=== PATIENT | male | born 1975 | race Caucasian/White ===

== ENCOUNTER 2017-02-18 15:52 | Emergency (ER) | payer MEDICARE | END 2017-02-18 19:01 | disposition home or self-care (01) | LOC: D.ER 15:52 | DX: M25.552 Pain in left hip (principal); M54.9 Dorsalgia, unspecified ==

== ENCOUNTER 2018-07-20 09:41 | Emergency (ER) | payer MEDICARE ==
[~2018-07-20] VITALS: Ht 175.3 cm; Wt 75.0 kg
[2018-07-20 09:45] VITALS: Ht 175.3 cm; Wt 75.0 kg
[2018-07-20] MEDS ORDERED: TORADOL10 MG PO (12:35)
[2018-07-20] MEDS ORDERED: NEURONTIN 300300 MG PO (12:35)
[2018-07-20 13:00] VITALS: BP 125/74
== END 2018-07-20 13:01 | disposition home or self-care (01) ==
LOC: D.ER 09:41
DX: M54.16 Radiculopathy, lumbar region (principal); M87.88 Other osteonecrosis, other site

== ENCOUNTER → 2018-09-30 16:08 | Outpatient (CLI) | payer MEDICARE ==
[2018-07-20 09:45] VITALS: BMI 24.4
[~2018-09-30 16:08] MED LIST: NEURONTIN 300300 MG PO; TORADOL10 MG PO
== END | disposition home or self-care (01) ==
LOC: D.LABREF 16:08
PROVIDERS: ATTEND Orthopaedic Surgery
DX: M16.12 Unilateral primary osteoarthritis, left hip (principal)

== ENCOUNTER 2018-10-02 17:29 | Inpatient (IN) | payer MEDICARE ==
[~2018-10-02] VITALS: Ht 175.3 cm; Wt 68.2 kg
[2018-10-08 11:48] LABS: APPEARANCE CLEAR (CLEAR); BILIRUBIN NEGATIVE (NEGATIVE); COLOR YELLOW (YELLOW); GLUCOSE NEGATIVE (NEGATIVE); KETONE NEGATIVE (NEGATIVE); NITRITE NEGATIVE (NEGATIVE); PROTEIN NEGATIVE (NEGATIVE); SPECIFIC GRAVITY 1.015 (1.005-1.020); UROBILINOGEN NORMAL (NORMAL)
[2018-10-08 12:01] LABS: INR 0.87 (0.85-1.17); PROTIME 11.4 SECONDS (11.6-15.0)
[2018-10-08 12:02] LABS: APTT 30.9 SECONDS (22.8-39.4)
[2018-10-08 12:04] LABS: CALC OSMOLALITY 278 mosm/kg (275-300); CALCIUM 9.5 mg/dL (8.5-10.1); CARBON DIOXIDE 30.5 mmol/L (21.0-32.0); CHLORIDE - SERUM 104 mmol/L (98-107); GLUCOSE 95 mg/dL (74-106); POTASSIUM - SERUM 4.4 mmol/L (3.5-5.1); SODIUM 141 mmol/L (136-145); UREA NITROGEN 8 mg/dL (7-18); eGFR NON AFRICAN AMERICAN 87 mL/min (90-120)
[2018-10-08 12:22] LABS: BASOPHILS 0.1 % (0-2); EOSINOPHILS 3.2 % (0-7); HEMATOCRIT 46.9 % (42.0-54.0); HEMOGLOBIN 16.2 g/dL (13.5-17.5); IMMATURE GRANULOCYTES 0.2 % (0-5); LYMPHOCYTES 21.7 % (15-50); MCH 33.4 pg (26.0-34.0); MCHC 34.5 g/dL (31.0-37.0); MCV 96.7 fL (80.0-100.0); MEAN PLATELET VOLUME 9.7 fL (7.4-10.4); MONOCYTES 8.7 % (2-11); NEUTROPHILS 66.1 % (40-80); PLATELET COUNT 341 10x3/uL (130-400); RBC 4.85 10x6/uL (4.20-6.10); RDW 15.1 % (11.5-14.5); WBC 9.9 10x3/uL (4.8-10.8)
[2018-10-15 07:47] VITALS: BP 130/77; BMI 23.6
--- NOTE | 2018-10-15 08:07 | NUR ---
DR ALCANTARA NOTIFIED AND REVIEWED PT.'S BEHAVIOR AND ASSESSMENT RESULTS. PT IS A LOW RISK PER DR ALCANTARA. DR ALCANTARA STATED TO GIVE RESOURCES TO PT AT TIME OF DISCHARGE. NO FURTHER ORDERS AT THIS TIME. RESOURCES REVIEWED WITH PT AND HE VERBALIZED UNDERSTANDING. PT VEHEMENTLY DENIES ANY THOUGHTS OF HARMING SELF AND VOICES REASONS FOR LIVING.
[2018-10-15 14:01] VITALS: BP 128/69
--- NOTE | 2018-10-15 14:49 | NUR ---
From OR today with Prevena dressing attached to Ulta wound vac [id number]. Dressing is on left hip incision.
[2018-10-15 18:23] VITALS: BP 117/72; Ht 175.3 cm; Wt 68.2 kg
--- NOTE | 2018-10-15 19:30 | NUR ---
PT SITTING UP IN BED WITHOUT DISTRESS. ALERT AND ORIENTED. IV RIGHT HAND SL, FLUSHES EASILY. LEFT HIP INCISION WITH PROVENA WOUND VAC DRESSING CDI. USING URINAL TO VOID. PLEXI BOOTS ON BILAT. PT STATES PAIN 6/10 AT THIS TIME, JUST RECIEVED MORPHINE PRIOR TO THIS NURSE RECIEVING PT. DENIES OTHER NEEDS. CL IN REACH, WILL CTM
--- NOTE | 2018-10-15 20:30 | NUR ---
PT REQUESTING PAIN MEDICATION, GAVE NORCO ORDERED. DENIES OTHER NEEDS. CL IN REACH, WILL CTM
[2018-10-15 21:49] VITALS: BP 122/71
[2018-10-16 02:49] VITALS: BP 110/61
--- NOTE | 2018-10-16 03:50 | NUR ---
UPON ENTERING ROOM PT IS SHAKING STATING HE IS COLD, TEMP 98.2 BUT HAS INCREASED TO 99 THROUGH THE NIGHT. EDUCATED PT ON INCENTIVE SPIROMETER AND ENCOURAGED PT TO USE 10X/HR WHILE AWAKE. VERBALIZED UNDERSTANDING. PT REQUESTED AND GIVEN VALIUM AT THIS TIME. CL IN REACH, WILL CTM
[2018-10-16 04:42] LABS: BASOPHILS 0.1 % (0-2); EOSINOPHILS 0.7 % (0-7); HEMATOCRIT 36.8 % (42.0-54.0); HEMOGLOBIN 12.7 g/dL (13.5-17.5); IMMATURE GRANULOCYTES 0.3 % (0-5); MCH 33.5 pg (26.0-34.0); MCHC 34.5 g/dL (31.0-37.0); MCV 97.1 fL (80.0-100.0); MEAN PLATELET VOLUME 9.5 fL (7.4-10.4); MONOCYTES 9.7 % (2-11); NEUTROPHILS 75.2 % (40-80); PLATELET COUNT 275 10x3/uL (130-400); RBC 3.79 10x6/uL (4.20-6.10); RDW 15.2 % (11.5-14.5); WBC 13.2 10x3/uL (4.8-10.8)
[2018-10-16 05:05] LABS: CALC OSMOLALITY 279 mosm/kg (275-300); CALCIUM 8.4 mg/dL (8.5-10.1); CARBON DIOXIDE 28.6 mmol/L (21.0-32.0); CHLORIDE - SERUM 104 mmol/L (98-107); GLUCOSE 102 mg/dL (74-106); SODIUM 141 mmol/L (136-145); UREA NITROGEN 10 mg/dL (7-18); eGFR NON AFRICAN AMERICAN 87 mL/min (90-120)
--- NOTE | 2018-10-16 05:15 | NUR ---
PT FEELING NAUSEAS, GIVEN EMESIS BAG. GAVE ZOFRAN ORDERED. STATES HE DOES NOT WANT THE MORPHINE ANYMORE AND WOULD RATHER HAVE THE NORCO BECAUSE IT LASTS LONGER AND SEEMED TO HELP MORE. NO OTHER NEEDS AT THIS TIME. CL IN REACH, WILL CTM
[2018-10-16 06:29] VITALS: BP 113/77
--- NOTE | 2018-10-16 07:05 | NUR ---
PATIENT IS POST OP DAY 1 FOLLOWING LEFT TOTAL HIP REPLACEMENT. PREVENA VAC INTACT. PAIN CONTROLED WITH NORCO. IV SL PATENT. CL IN REACH
[2018-10-16 10:26] VITALS: BP 117/66
[2018-10-16 12:43] VITALS: BP 104/59
--- NOTE | 2018-10-16 12:49 | MORECARE ---
CASE MANAGEMENT DISCHARGE SUMMARY PATIENT: BENI LEE UNIT: [id number] ADM DATE: 10/15/18 AGE: 43 : 75 SEX: M ROOM/BED: D.2208 AUTHOR: KEN WILLIAMSON PHYSICIAN: REFERRING PHYSICIAN: JULIO CÉSAR OLSEN MD DATE OF SERVICE: 10/16/18 Discharge Plan Patient Name: BENI LEE [facility] [place] : 1975 Planned Disposition: Home or Self Care Anticipated Discharge Date: Discharge Date: Expected LOS: Initial Reviewer: [email or web address] Initial Review Date: 10/15/2018 Generated: 10/16/18 1:49 pm DCPIA - Discharge Planning Initial Assessment Updated by [email or web address]: Toña Larsen on 10/16/18 12:47 pm * Is the patient Alert and Oriented? Yes * How many steps to enter\exit or inside your home? * [facility] * [facility]acy [facility] [place] * Preadmission Environment Home with Family * ADLs Independent * Equipment Bedside Commode Walker Wheelchair * List name and contact numbers for known caregivers / representatives who currently or will assist patient after discharge: JACKIE BRUMFIELD) [phone] * Verbal permission to speak to the caregivers and representatives has been obtained from the patient. N/A * Community resources currently utilized None * Additional services required to return to the preadmission environment? Yes * Can the patient safely return to the preadmission environment? Yes * Has this patient been hospitalized within the prior 30 days at any hospital? No Patient Name: BENI LEE Page 41684 at 1249 All edits/amendments must be made on the electronic document DICTATION DATE: 10/16/18 1249 HORSE STUD WORKER: SUSANA 10/16/18 1249 RPT#: [id number] DC DATE: STATUS: ADM IN [facility] [address] [place] [address] END OF REPORT
--- NOTE | 2018-10-16 12:58 | MORECARE ---
CASE MANAGEMENT DISCHARGE SUMMARY PATIENT: BENI LEE UNIT: [id number] ADM DATE: 10/15/18 AGE: 43 : 75 SEX: M ROOM/BED: D.2208 AUTHOR: KEN WILLIAMSON PHYSICIAN: REFERRING PHYSICIAN: JULIO CÉSAR OLSEN MD DATE OF SERVICE: 10/16/18 Discharge Plan Patient Name: BENI LEE Facility: [facility]:[place] : 1975 Planned Disposition: Home or Self Care Anticipated Discharge Date: Discharge Date: Expected LOS: Initial Reviewer: [email or web address] Initial Review Date: 10/15/2018 Generated: 10/16/18 1:57 pm Comments DCP- Discharge Planning Updated by [email or web address]: Toña Larsen on 10/16/18 11:[address] Patient Name: BENI LEE Admission Status: Elective Accout number: [id number] Admission Date: 10-15-2018 : 1975 Admission Diagnosis: Attending: JULIO CÉSAR OLSEN Current LOS: 1 Anticipated DC Date: Planned Disposition: Home or Self Care Primary Insurance: MEDICARE A & B Discharge Planning Comments: CM met with patient to complete initial dc planning assessment. CM educated patient on the CM role and verbal consent given by patient to complete assessment. Patient lives with his sister and niece where he is independent with his care. At discharge patient plans to return home and feels this is a safe discharge. His sister will be his vending route driver home. CM discussed availability of home health, rehab services, and medical equipment. He has a walker, BSC, wheelchair at home. He would like to do his OPPT at [facility] in [facility]. I will make his first appointment, a copy will be given to him with his discharge instructions. Patient denied known discharge needs at this time. CM will continue to follow and will assist as needed with dc plans/needs. Director Of Hotel: Toña Larsen DCPIA - Discharge Planning Initial Assessment Updated by [email or web address]: Toña Larsen on 10/16/18 12:47 pm * Is the patient Alert and Oriented? Yes * How many steps to enter\exit or inside your home? * [facility] * [facility]acy [facility] [place] * Preadmission Environment Home with Family * ADLs Independent * Equipment Bedside Commode Walker Wheelchair * List name and contact numbers for known caregivers / representatives who currently or will assist patient after discharge: JACKIE (NIECE) [phone] * Verbal permission to speak to the caregivers and representatives has been obtained from the patient. N/A * Community resources currently utilized None * Additional services required to return to the preadmission environment? Yes * Can the patient safely return to the preadmission environment? Yes * Has this patient been hospitalized within the prior 30 days at any hospital? No Last DP export: 10/16/18 11:49 a Patient Name: BENI LEE Page [phone] at 1258 All edits/amendments must be made on the electronic document DICTATION DATE: 10/16/18 1257 LOGISTICS PROJECT MANAGER: SUSANA 10/16/18 1257 RPT#: [id number] DC DATE: STATUS: ADM IN [facility] [address] [place] [address] END OF REPORT
--- NOTE | 2018-10-16 15:26 | MORECARE ---
CASE MANAGEMENT DISCHARGE SUMMARY PATIENT: BENI LEE UNIT: [id number] ADM DATE: 10/15/18 AGE: 43 : 75 SEX: M ROOM/BED: D.220 AUTHOR: KEN WILLIAMSON PHYSICIAN: REFERRING PHYSICIAN: JULIO CÉSAR OLSEN MD DATE OF SERVICE: 10/16/18 Discharge Plan Patient Name: BENI LEE Facility: [facility]:[place] : 1975 Planned Disposition: Home or Self Care Anticipated Discharge Date: Discharge Date: Expected LOS: Initial Reviewer: [email or web address] Initial Review Date: 10/15/2018 Generated: 10/16/18 4:25 pm Comments DCP- Discharge Planning Updated by [email or web address]: Toña Larsen on 10/16/18 2:[address] OP PT SET UP FOR SaturdayOct AT 1:30 AT [facility], I SPOKE WITH ANDREA DCP- Discharge Planning Updated by [email or web address]: Toña Larsen on 10/16/18 11:[address] Patient Name: BENI LEE Admission Status: Elective Accout number: [id number] Admission Date: 10-15-2018 : 1975 Admission Diagnosis: Attending: JULIO CÉSAR OLSEN Current LOS: 1 Anticipated DC Date: Planned Disposition: Home or Self Care Primary Insurance: MEDICARE A & B Discharge Planning Comments: CM met with patient to complete initial dc planning assessment. CM educated patient on the CM role and verbal consent given by patient to complete assessment. Patient lives with his sister and niece where he is independent with his care. At discharge patient plans to return home and feels this is a safe discharge. His sister will be his ems driver home. CM discussed availability of home health, rehab services, and medical equipment. He has a walker, BSC, wheelchair at home. He would like to do his OPPT at [facility]. I will make his first appointment, a copy will be given to him with his discharge instructions. Patient denied known discharge needs at this time. CM will continue to follow and will assist as needed with dc plans/needs. Nursing Tech: Toña Larsen DCPIA - Discharge Planning Initial Assessment Updated by [email or web address]: Toña Larsen on 10/16/18 12:47 pm * Is the patient Alert and Oriented? Yes * How many steps to enter\exit or inside your home? * [facility] * [facility]acy [facility] [place] * Preadmission Environment Home with Family * ADLs Independent * Equipment Bedside Commode Walker Wheelchair * List name and contact numbers for known caregivers / representatives who currently or will assist patient after discharge: JACKIE (NIECE) [phone] * Verbal permission to speak to the caregivers and representatives has been obtained from the patient. N/A * Community resources currently utilized None * Additional services required to return to the preadmission environment? Yes * Can the patient safely return to the preadmission environment? Yes * Has this patient been hospitalized within the prior 30 days at any hospital? No External Providers External Provider: Heidi CONNER Next Contact Date: Service Request Date: Service Type: Resolution: Reviewer: Comments: Last DP export: 10/16/18 11:57 a Patient Name: BENI LEE Page [phone] at 1525 All edits/amendments must be made on the electronic document DICTATION DATE: 10/16/18 1525 BUILDING DRAFTING OFFICER: SUSANA 10/16/18 1525 RPT#: [id number] DC DATE: STATUS: ADM IN [facility] [address] [place] [address] END OF REPORT
[2018-10-16 18:35] VITALS: BP 120/73
--- NOTE | 2018-10-16 19:35 | NUR ---
LYING IN BED TALKING TO VISITOR. ALERT AND ORIENTED X4. IRRITABLE. REQUESTING PAIN MED FOR LT HIP PAIN RATING 8. OFFERED NORCO AND PT STATES, "I'LL LEAVE HERE IF I DONT GET SOME MORPHINE AND I'LL GO HOME AND MEDICATED MYSELF WITH WHISKEY." MEDICATED WITH MORPHINE AT THIS TIME. PT THEN APOLOGIZED TO STAFF FOR BEING RUDE. WOUND VAC NOTED TO LT HIP WITH NO DRAINAGE IN TUBING. MELINDA DUFF NOTED BILAT. NOT WEARING PLEXI BOOTS. SALINE LOCK NOTED TO RT HAND. AMB WITH WALKER WITH ASSIST. RESP EVEN AND NONLABORED. SR ELEVATED X2. CL IN REACH.
[2018-10-16 20:59] VITALS: BP 124/78
--- NOTE | 2018-10-17 00:10 | NUR ---
MEDICATED WITH NORCO FOR C/O PAIN IN LT HIP RATING 9. SR ELEVATED X2. CL IN REACH.
[2018-10-17 01:02] VITALS: BP 126/80
--- NOTE | 2018-10-17 01:35 | NUR ---
RECEIVED BATH AT THIS TIME WITH ASSIST PER CLOTH FEEDER. ROUND RASH NOTED TO ABD AND BACK. PT ITCHING. STATES, "I DO THIS ALL THE TIME AT HOME AND DONT KNOW WHAT CAUSES IT." STATES HE DOESNT TAKE ANY HOME MEDS. NO CHANGES IN CURRENT MEDS THAT HE HAS BEEN ON FOR SEVERAL DAYS. MEDICATED WITH BENADRYL AT THIS TIME. WILL CONT TO MONITOR. CL IN REACH.
--- NOTE | 2018-10-17 04:20 | NUR ---
MEDICATED WITH MORPHINE FOR C/O PAIN IN LT HIP RATING 8. CL IN REACH.
[2018-10-17 04:55] VITALS: BP 119/66
[2018-10-17 06:17] LABS: BASOPHILS 0.1 % (0-2); EOSINOPHILS 1.4 % (0-7); HEMATOCRIT 35.2 % (42.0-54.0); HEMOGLOBIN 11.9 g/dL (13.5-17.5); IMMATURE GRANULOCYTES 0.3 % (0-5); LYMPHOCYTES 20.8 % (15-50); MCH 33.1 pg (26.0-34.0); MCHC 33.8 g/dL (31.0-37.0); MCV 97.8 fL (80.0-100.0); MEAN PLATELET VOLUME 9.4 fL (7.4-10.4); MONOCYTES 7.8 % (2-11); NEUTROPHILS 69.6 % (40-80); PLATELET COUNT 255 10x3/uL (130-400); WBC 11.6 10x3/uL (4.8-10.8)
--- NOTE | 2018-10-17 07:33 | NUR ---
ALERT AND ORIENTED. LUNGS CLEAR BILATERALLY IN ALL AUGUSTINE. HEART SOUNDS S1 AND S2 HEARD IN ALL AUGUSTINE. BOWEL SOUNDS ACTIVE X 4. SKIN INTACT WITHOUT REDNESS. DRSG IN PLACE TO LEFT HIP C/D/I. IV TO RIGHT HAND PATENT WITHOUT REDNESS. BED LOW. CALL DICKENS AND PERSONAL ITEMS IN REACH. WILL CONTINUE TO MONITOR.
[2018-10-17 08:07] VITALS: BP 116/77
--- NOTE | 2018-10-17 08:51 | NUR ---
SPOKE WITH DR OLSEN ABOUT PATIENT TEMP 102 THIS AM. [facility] THINKS ATELECTASIS FROM LUNGS. EDUCATION PROVIDED TO PATIENT ON USE OF INCENTIVE SPIROMETER. [facility] HAS BEEN USING. NEW ORDER OBTAINED FOR TYLENOL [id number] PRN FEVER.
--- NOTE | 2018-10-17 09:30 | NUR ---
PATIENT SLEEPING. WILL CONTINUE TO MONITOR.
--- NOTE | 2018-10-17 12:47 | NUR ---
PATIENT SLEEPING. WILL CONTINUE TO MONITOR.
[2018-10-17 13:13] VITALS: BP 112/69
--- NOTE | 2018-10-17 14:29 | NUR ---
PATIENT SLEEPING. WILL CONTINUE TO MONITOR.
[2018-10-17 16:21] VITALS: BP 111/64
--- NOTE | 2018-10-17 18:12 | NUR ---
RESTING IN BED. FAMILY AT BEDSIDE. DENIES NEEDS. BED LOW. CALL DICKENS AND PERSONAL ITEMS IN REACH. WILL CONTINUE TO MONITOR.
--- NOTE | 2018-10-17 19:15 | NUR ---
RECEIVED CARE FROM DAY NURSE. LYING IN BED WITH EYES CLOSED. RESP EVEN AND UNLABORED. CALL LIGHT AT SIDE. IV TO RIGHT HAND SL.
[2018-10-17 21:25] VITALS: BP 132/59
[2018-10-18 01:24] VITALS: BP 112/61
[2018-10-18 05:44] VITALS: BP 107/70
[2018-10-18 07:07] LABS: BASOPHILS 0.1 % (0-2); EOSINOPHILS 2.1 % (0-7); HEMATOCRIT 34.7 % (42.0-54.0); HEMOGLOBIN 11.6 g/dL (13.5-17.5); IMMATURE GRANULOCYTES 0.6 % (0-5); LYMPHOCYTES 17.1 % (15-50); MCH 32.8 pg (26.0-34.0); MCHC 33.4 g/dL (31.0-37.0); MEAN PLATELET VOLUME 9.5 fL (7.4-10.4); MONOCYTES 8.5 % (2-11); NEUTROPHILS 71.6 % (40-80); PLATELET COUNT 302 10x3/uL (130-400); RBC 3.54 10x6/uL (4.20-6.10); RDW 14.8 % (11.5-14.5); WBC 10.5 10x3/uL (4.8-10.8)
--- NOTE | 2018-10-18 08:14 | NUR ---
AWAKE AND ALERT. ORIENTED X3. NO C/O AT THIS TIME. LUNGS ARE CLEAR BILATERALLY, NO COUGH NOTED. SKIN IS INTACT WITHOUT REDNESS EXCEPT INCISION TO LEFT HIP WHICH HAS A PROVEENA IN PLACE WITH NO OUTPUT. IV TO RIGHT HAND IS PATENT WTIHOUT REDNESS AT INSERTION SITE. DENIES NEEDS. REPORTS NO BM SINCE SURGERY BUT WON'T GO UNTILL HE'S AT HOME. DENIES DISCOMFORT.
--- NOTE | 2018-10-18 08:35 | NUR ---
REQUESTED AND GIVEN ONE HYDROCODONE PO FOR C/O RIGHT HIP PAIN LEVEL 6. WILL MARYANNTR.
[2018-10-18] MEDS ORDERED: BACTRIM DS PO (08:56)
[2018-10-18] MEDS ORDERED: ASPIRIN325 MG PO ×2 (08:56→09:02)
[2018-10-18 09:04] VITALS: BP 123/77
--- NOTE | 2018-10-18 09:30 | NUR ---
AMBULATED IN HALLWAY WITH PT USING RW. NO C/O INCREASED PAIN WITH ACTIVITY.
[2018-10-18 12:42] VITALS: BP 115/74
--- NOTE | 2018-10-18 13:00 | NUR ---
REQUESTED AND GIVEN ONE HYDROCODONE PO FOR C/O RIGHT HIP PAIN LEVEL 5. WILL MONITOR.
--- NOTE | 2018-10-18 14:31 | NUR ---
ATE MOST OF LUNCH. RESTING QUIETLY IN BED. DENIES NEEDS.
[2018-10-18 15:37] VITALS: BP 114/72
--- NOTE | 2018-10-18 16:17 | MORECARE ---
CASE MANAGEMENT DISCHARGE SUMMARY PATIENT: BENI LEE UNIT: [id number] ADM DATE: 10/15/18 AGE: 43 : 75 SEX: M ROOM/BED: D.220 AUTHOR: KEN WILLIAMSON PHYSICIAN: REFERRING PHYSICIAN: JULIO CÉSAR OLSEN MD DATE OF SERVICE: 10/18/18 Discharge Plan Patient Name: BENI LEE Facility: [facility]:[place] : 1975 Planned Disposition: Home or Self Care Anticipated Discharge Date: 10/18/18 Discharge Date: Expected LOS: 3 Initial Reviewer: [email or web address] Initial Review Date: 10/15/2018 Generated: 10/18/18 5:17 pm Comments DCP- Discharge Planning Updated by [email or web address]: Toña Larsen on 10/16/18 2:[address] OP PT SET UP FOR SaturdayOct AT 1:30 AT [facility], I SPOKE WITH ANDREA DCP- Discharge Planning Updated by [email or web address]: Toña Larsen on 10/16/18 11:[address] Patient Name: BENI LEE Admission Status: Elective Accout number: [id number] Admission Date: 10-15-2018 : 1975 Admission Diagnosis: Attending: JULIO CÉSAR OLSEN Current LOS: 1 Anticipated DC Date: Planned Disposition: Home or Self Care Primary Insurance: MEDICARE A & B Discharge Planning Comments: CM met with patient to complete initial dc planning assessment. CM educated patient on the CM role and verbal consent given by patient to complete assessment. Patient lives with his sister and niece where he is independent with his care. At discharge patient plans to return home and feels this is a safe discharge. His sister will be his flag car driver home. CM discussed availability of home health, rehab services, and medical equipment. He has a walker, BSC, wheelchair at home. He would like to do his OPPT at [facility]. I will make his first appointment, a copy will be given to him with his discharge instructions. Patient denied known discharge needs at this time. CM will continue to follow and will assist as needed with dc plans/needs. Cut Out Operator: Toña Larsen DCPIA - Discharge Planning Initial Assessment Updated by [email or web address]: Toña Larsen on 10/16/18 12:47 pm * Is the patient Alert and Oriented? Yes * How many steps to enter\exit or inside your home? * [facility]CP [facility] * [facility]acy [facility] [place] * Preadmission Environment Home with Family * ADLs Independent * Equipment Bedside Commode Walker Wheelchair * List name and contact numbers for known caregivers / representatives who currently or will assist patient after discharge: JACKIE (NIECE) [phone] * Verbal permission to speak to the caregivers and representatives has been obtained from the patient. N/A * Community resources currently utilized None * Additional services required to return to the preadmission environment? Yes * Can the patient safely return to the preadmission environment? Yes * Has this patient been hospitalized within the prior 30 days at any hospital? No Last DP export: 10/16/18 2:26 p Patient Name: BENI LEE Page [id number] at 1617 All edits/amendments must be made on the electronic document DICTATION DATE: 10/18/181616 GEOTHERMAL SHEET METAL WORKER: SUSANA 10/18/181616 RPT#: [id number] DC DATE: STATUS: ADM IN [facility] [address] [place] [address] END OF REPORT
--- NOTE | 2018-10-18 16:30 | MORECARE ---
CASE MANAGEMENT DISCHARGE SUMMARY PATIENT: BENI LEE UNIT: [id number] ADM DATE: 10/15/18 AGE: 43 : 75 SEX: M ROOM/BED: D.2209 AUTHOR: CLAY,DOC PHYSICIAN: REFERRING PHYSICIAN: JULIO CÉSAR OLSEN MD DATE OF SERVICE: 10/18/18 Discharge Plan Patient Name: BENI LEE Facility: [facility]:[place] : 1975 Planned Disposition: Home or Self Care Anticipated Discharge Date: 10/18/18 Discharge Date: Expected LOS: 3 Initial Reviewer: [email or web address] Initial Review Date: 10/15/2018 Generated: 10/18/18 5:30 pm Comments DCP- Discharge Planning Updated by [email or web address]: Casie Silver on 10/18/18 3:[address] 1500 LATE ENTRY PATIENT FOR POSSIBLE DISCHARGE TO HOME IF HE REMAINS AFEBRILE THIS LATE PM. MD HAD ORDERED H/H FOR NURSING AND PHYSICAL THERAPY. NURSE TO DISCONTINUE THE PREVENA ON POD #7. DRSG TO BE CHANGED TO [facility]. SELINA CALLED THE PATIENT TO ADVISE OF H/H ORDER. HE WAS COGNIZANT AND IN AGREEMENT W/ PLAN. 1513 CM VISITED THE PATIENT AT THE BEDSIDE. CM SPOKE WITH THE PATIENT AND PROVIDED A LIST OF H/H PROVIDERS. PATIENT CHOICE FORM OBTAINED. HE SELECTED [facility]. SIGNED COPY TO THE PATIENT. SIGNED COPY TO THE CHART. TC TO [facility]. SELINA SPOKE W/ HEAD FIELD HOCKEY COACH NURSE. REVIEWED THE REFERRAL SHE FELT THE NEXT POSSIBLE OPENING WOULD BE SATURDAY. SHE CALLED HER WAITER/WAITRESS CAPTAIN. THEY HAVE AN OPENING FOR ADMISSION ON SATURDAY BY THE NURSE A CANCELLATION WAS RECEIVED. SELINA VISITED THE PATIENT. GAVE HIM A idio BROCHURE AND ADVISED idio WILL VISIT HIM SATURDAY. SELINA FAXED CLINICAL, D/C MEDS, LABS AND MD ORDERS TO [facility]. DCP- Discharge Planning Updated by [email or web address]: Toña Larsen on 10/16/18 2:[address] OP PT SET UP FOR SaturdayOct AT 1:30 AT [facility], I SPOKE WITH ANDREA DCP- Discharge Planning Updated by [email or web address]: Toña Larsen on 10/16/18 11:[address] Patient Name: BENI LEE Admission Status: Elective Accout number: [id number] Admission Date: 10-15-2018 : 1975 Admission Diagnosis: Attending: JULIO CÉSAR OLSEN Current LOS: 1 Anticipated DC Date: Planned Disposition: Home or Self Care Primary Insurance: MEDICARE A & B Discharge Planning Comments: CM met with patient to complete initial dc planning assessment. CM educated patient on the CM role and verbal consent given by patient to complete assessment. Patient lives with his sister and niece where he is independent with his care. At discharge patient plans to return home and feels this is a safe discharge. His sister will be his cement mixer driver home. CM discussed availability of home health, rehab services, and medical equipment. He has a walker, BSC, wheelchair at home. He would like to do his OPPT at [facility]. I will make his first appointment, a copy will be given to him with his discharge instructions. Patient denied known discharge needs at this time. CM will continue to follow and will assist as needed with dc plans/needs. Sap Integration Architect: Toña Larsen DCPIA - Discharge Planning Initial Assessment Updated by [email or web address]: Toña Larsen on 10/16/18 12:47 pm * Is the patient Alert and Oriented? Yes * How many steps to enter\exit or inside your home? * [facility] * Pharmacy [facility] IN [facility] * Preadmission Environment Home with Family * ADLs Independent * Equipment Bedside Commode Walker Wheelchair * List name and contact numbers for known caregivers / representatives who currently or will assist patient after discharge: JACKIE (NIECE) [phone] * Verbal permission to speak to the caregivers and representatives has been obtained from the patient. N/A * Community resources currently utilized None * Additional services required to return to the preadmission environment? Yes * Can the patient safely return to the preadmission environment? Yes * Has this patient been hospitalized within the prior 30 days at any hospital? No Coverage Notice Reviewer: [id number] Beata Silver Notice Issued Date-Time: 10/18/2018 16:29 Notice Type: Patient Choice Letter Notice Delivered To: Patient Relationship to Patient: Self Residential Framing Carpenter Name: Delivery Method: - Afia Days: Prior Verbal Notification: Recipient Understood Notice: Recipient Signature: Med Rec Note Co-signed by Attending: Coverage Notice Comment: Last DP export: 10/18/18 3:17 p Patient Name: BENI LEE Page [id number] at 1630 All edits/amendments must be made on the electronic document DICTATION DATE: 10/18/181628 INTERIOR DESIGN PROGRAM CHAIR: SUSANA 10/18/181628 RPT#: [id number] DC DATE: STATUS: ADM IN [facility] [address] [place] [address] END OF REPORT
--- NOTE | 2018-10-18 17:00 | NUR ---
DISCHARGED TO HOME WITH FAMILY AMBULATORY. DISCHARGE INSTRUCTIONS GIVEN BOTH VERBALLY AND WRITTEN. ALL QUESTIONS ANSWERED. PATIENT VERBALIZED UNDERSTANDING OF SAME. IV TO RIGHT HAND D/C WITH CATHETER INTACT. PRESCRIPTIONS NEEDED GIVEN TO PATIENT. ALL BELONGINGS WITH PATIENT.
--- NOTE | 2018-10-18 17:08 | MORECARE ---
CASE MANAGEMENT DISCHARGE SUMMARY PATIENT: BENI LEE UNIT: [id number] ADM DATE: 10/15/18 AGE: 43 : 75 SEX: M ROOM/BED: D.2202 AUTHOR: CLAY,DOC PHYSICIAN: REFERRING PHYSICIAN: JULIO CÉSAR OLSEN MD DATE OF SERVICE: 10/18/18 Discharge Plan Patient Name: BENI LEE Facility: [facility]:[place] : 1975 Planned Disposition: Home or Self Care Anticipated Discharge Date: 10/18/18 Discharge Date: Expected LOS: 3 Initial Reviewer: [email or web address] Initial Review Date: 10/15/2018 Generated: 10/18/18 6:07 pm Comments DCP- Discharge Planning Updated by [email or web address]: Casie Silver on 10/18/18 3:[address] 1500 LATE ENTRY PATIENT FOR POSSIBLE DISCHARGE TO HOME IF HE REMAINS AFEBRILE THIS LATE PM. MD HAD ORDERED H/H FOR NURSING AND PHYSICAL THERAPY. NURSE TO DISCONTINUE THE PREVENA ON POD #7. DRSG TO BE CHANGED TO [facility]. SELINA CALLED THE PATIENT TO ADVISE OF H/H ORDER. HE WAS COGNIZANT AND IN AGREEMENT W/ PLAN. 1513 CM VISITED THE PATIENT AT THE BEDSIDE. CM SPOKE WITH THE PATIENT AND PROVIDED A LIST OF H/H PROVIDERS. PATIENT CHOICE FORM OBTAINED. HE SELECTED [facility]. SIGNED COPY TO THE PATIENT. SIGNED COPY TO THE CHART. TC TO [facility]. SELINA SPOKE W/ GRIPPER MACHINE OPERATOR NURSE. REVIEWED THE REFERRAL SHE FELT THE NEXT POSSIBLE OPENING WOULD BE SATURDAY. SHE CALLED HER [facility]. THEY HAVE AN OPENING FOR ADMISSION ON SATURDAY BY THE NURSE A CANCELLATION WAS RECEIVED. SELINA VISITED THE PATIENT. GAVE HIM A [employer] BROCHURE AND ADVISED [facility] WILL VISIT HIM SATURDAY. SELINA FAXED CLINICAL, D/C MEDS, LABS AND MD ORDERS TO [facility]. DCP- Discharge Planning Updated by [email or web address]: Toña Larsen on 10/16/18 2:[address] OP PT SET UP FOR SaturdayOct AT 1:30 AT [facility], I SPOKE WITH ANDREA DCP- Discharge Planning Updated by [id number]: Toña Larsen on 10/16/18 11:[address] Patient Name: BENI LEE Admission Status: Elective Accout number: [id number] Admission Date: 10-15-2018 : 1975 Admission Diagnosis: Attending: JULIO CÉSAR OLSEN Current LOS: 1 Anticipated DC Date: Planned Disposition: Home or Self Care Primary Insurance: MEDICARE A & B Discharge Planning Comments: CM met with patient to complete initial dc planning assessment. CM educated patient on the CM role and verbal consent given by patient to complete assessment. Patient lives with his sister and niece where he is independent with his care. At discharge patient plans to return home and feels this is a safe discharge. His sister will be his wagon driver home. CM discussed availability of home health, rehab services, and medical equipment. He has a walker, BSC, wheelchair at home. He would like to [facility] in [facility]. I will make his first appointment, a copy will be given to him with his discharge instructions. Patient denied known discharge needs at this time. CM will continue to follow and will assist as needed with dc plans/needs. Felter Tennis Balls: Toña Larsen DCPIA - Discharge Planning Initial Assessment Updated by [email or web address]: Toña Larsen on 10/16/18 12:47 pm * Is the patient Alert and Oriented? Yes * How many steps to enter\exit or inside your home? * [facility]CP [facility] * Pharmacy [facility] IN [facility] * Preadmission Environment Home with Family * ADLs Independent * Equipment Bedside Commode Walker Wheelchair * List name and contact numbers for known caregivers / representatives who currently or will assist patient after discharge: JACKIE (NIECE) [phone] * Verbal permission to speak to the caregivers and representatives has been obtained from the patient. N/A * Community resources currently utilized None * Additional services required to return to the preadmission environment? Yes * Can the patient safely return to the preadmission environment? Yes * Has this patient been hospitalized within the prior 30 days at any hospital? No Coverage Notice Reviewer: [id number] Beata Silver Notice Issued Date-Time: 10/18/2018 16:29 Notice Type: Patient Choice Letter Notice Delivered To: Patient Relationship to Patient: Self Belt Conveyor Drier Name: Delivery Method: HAND - Hand Delivered Faia Days: Prior Verbal Notification: Recipient Understood Notice: Yes Recipient Signature: Yes Med Rec Note Co-signed by Attending: Coverage Notice Comment: PATIENT CHOICE FOR H/H OBTAINED. Reviewer: [id number] Beata Silver Notice Issued Date-Time: 10/18/2018 16:40 Notice Type: IM Discharge Notice Notice Delivered To: Patient Relationship to Patient: Self Belt Conveyor Drier Name: Delivery Method: HAND - Hand Delivered Afia Days: Prior Verbal Notification: Recipient Understood Notice: Yes Recipient Signature: Yes Med Rec Note Co-signed by Attending: Coverage Notice Comment: DISCHARGE IMM EXPLAINED AND SERVED Last DP export: 10/18/18 3:30 p Patient Name: BENI LEE Page [id number] at 1708 All edits/amendments must be made on the electronic document DICTATION DATE: 10/18/181706 GLUE BONE DRIER: SUSANA 10/18/181706 RPT#: [id number] DC DATE: STATUS: ADM IN [facility] [address] [place] [address] END OF REPORT
--- NOTE | 2018-10-20 13:08 | MORECARE ---
CASE MANAGEMENT DISCHARGE SUMMARY PATIENT: BENI LEE UNIT: [id number] ADM DATE: 10/15/18 AGE: 43 : 75 SEX: M ROOM/BED: D.2202 AUTHOR: CLAY,DOC PHYSICIAN: REFERRING PHYSICIAN: JULIO CÉSAR OLSEN MD DATE OF SERVICE: 10/20/18 Discharge Plan Patient Name: BENI LEE Facility: [facility]:[place] : 1975 Planned Disposition: Home or Self Care Anticipated Discharge Date: 10/18/18 Discharge Date: 10/18/2018 Expected LOS: 3 Initial Reviewer: [email or web address] Initial Review Date: 10/15/2018 Generated: 10/20/18 2:08 pm Comments DCP- Discharge Planning Updated by [email or web address]: Casie Adrianne on 10/18/18 3:[address] 1500 LATE ENTRY PATIENT FOR POSSIBLE DISCHARGE TO HOME IF HE REMAINS AFEBRILE THIS LATE PM. MD HAD ORDERED H/H FOR NURSING AND PHYSICAL THERAPY. NURSE TO DISCONTINUE THE PREVENA ON POD #7. DRSG TO BE CHANGED TO [facility]. CM CALLED THE PATIENT TO ADVISE OF H/H ORDER. HE WAS COGNIZANT AND IN AGREEMENT W/ PLAN. 1513 CM VISITED THE PATIENT AT THE BEDSIDE. CM SPOKE WITH THE PATIENT AND PROVIDED A LIST OF H/H PROVIDERS. PATIENT CHOICE FORM OBTAINED. HE SELECTED [facility]. SIGNED COPY TO THE PATIENT. SIGNED COPY TO THE CHART. TC TO [facility]. SELINA SPOKE W/ STEEL WORKER NURSE. REVIEWED THE REFERRAL SHE FELT THE NEXT POSSIBLE OPENING WOULD BE SATURDAY. SHE CALLED HER WOOD [facility]ORING MACHINE OPERATOR. THEY HAVE AN OPENING FOR ADMISSION ON SATURDAY BY THE NURSE A CANCELLATION WAS RECEIVED. SELINA VISITED THE PATIENT. GAVE HIM A [employer] BROCHURE AND ADVISED [facility] WILL VISIT HIM SATURDAY. SELINA FAXED CLINICAL, D/C MEDS, LABS AND MD ORDERS TO [facility]. DCP- Discharge Planning Updated by [id number]: Toña Larsen on 10/16/18 2:[address] OP PT SET UP FOR SaturdayOct AT 1:30 AT [facility], I SPOKE WITH ANDREA DCP- Discharge Planning Updated by [id number]: Toña Larsen on 10/16/18 11:[address] Patient Name: BENI LEE Admission Status: Elective Accout number: [id number] Admission Date: 10-15-2018 : 1975 Admission Diagnosis: Attending: JULIO CÉSAR OLSEN Current LOS: 1 Anticipated DC Date: Planned Disposition: Home or Self Care Primary Insurance: MEDICARE A & B Discharge Planning Comments: CM met with patient to complete initial dc planning assessment. CM educated patient on the CM role and verbal consent given by patient to complete assessment. Patient lives with his sister and niece where he is independent with his care. At discharge patient plans to return home and feels this is a safe discharge. His sister will be his semi truck driver home. CM discussed availability of home health, rehab services, and medical equipment. He has a walker, BSC, wheelchair at home. He would like to do his OPPT at [facility] in [facility]. I will make his first appointment, a copy will be given to him with his discharge instructions. Patient denied known discharge needs at this time. CM will continue to follow and will assist as needed with dc plans/needs. Newsagent: Toña Larsen DCPIA - Discharge Planning Initial Assessment Updated by [id number]: Toña Larsen on 10/16/18 12:47 pm * Is the patient Alert and Oriented? Yes * How many steps to enter\exit or inside your home? * PCP [facility] * Pharmacy [facility] IN [facility] * Preadmission Environment Home with Family * ADLs Independent * Equipment Bedside Commode Walker Wheelchair * List name and contact numbers for known caregivers / representatives who currently or will assist patient after discharge: JACKIE (NIECE) [phone] * Verbal permission to speak to the caregivers and representatives has been obtained from the patient. N/A * Community resources currently utilized None * Additional services required to return to the preadmission environment? Yes * Can the patient safely return to the preadmission environment? Yes * Has this patient been hospitalized within the prior 30 days at any hospital? No Coverage Notice Reviewer: [email or web address] Beata Silver Notice Issued Date-Time: 10/18/2018 16:29 Notice Type: Patient Choice Letter Notice Delivered To: Patient Relationship to Patient: Self Recyclable Materials Distributor Name: Delivery Method: HAND - Hand Delivered Afia Days: Prior Verbal Notification: Recipient Understood Notice: Yes Recipient Signature: Yes Med Rec Note Co-signed by Attending: Coverage Notice Comment: PATIENT CHOICE FOR H/H OBTAINED. Reviewer: [email or web address] Beata Silver Notice Issued Date-Time: 10/18/2018 16:40 Notice Type: IM Discharge Notice Notice Delivered To: Patient Relationship to Patient: Self Recyclable Materials Distributor Name: Delivery Method: HAND - Hand Delivered Afia Days: Prior Verbal Notification: Recipient Understood Notice: Yes Recipient Signature: Yes Med Rec Note Co-signed by Attending: Coverage Notice Comment: DISCHARGE IMM EXPLAINED AND SERVED Last DP export: 10/18/18 4:08 p Patient Name: BENI LEE Page [id number] at 1308 All edits/amendments must be made on the electronic document DICTATION DATE: 10/20/181306 CHOCOLATE MOLDER: SUSANA 10/20/18 1307 RPT#: [id number] DC DATE:10/18/18 STATUS: DIS IN [facility] [address] [place] [address] END OF REPORT
== END 2018-10-18 17:00 | disposition home or self-care (01) | DRG 470 ==
LOC: D.MS 10-15 06:45 → D.SDCHOLD 10-15 06:45 → D.MS 10-15 13:46
PROVIDERS: ADMIT Orthopaedic Surgery; ATTEND Orthopaedic Surgery
PROC: 0SRB0J9 Replacement of Left Hip Joint with Synthetic Substitute, Cemented, Open Approach (ICD-10-PCS; principal; 2018-10-15 09:30)
DX: M87.852 Other osteonecrosis, left femur (principal); M16.12 Unilateral primary osteoarthritis, left hip; M87.9 Osteonecrosis, unspecified

== ENCOUNTER 2019-01-31 12:57 | Emergency (ER) | payer MEDICARE ==
[~2019-01-31] VITALS: Ht 175.3 cm; Wt 77.3 kg
[~2019-01-31 12:57] MED LIST changes: +ASPIRIN325 MG PO; +BACTRIM DS PO
[2019-01-31 13:04] VITALS: Ht 175.3 cm; Wt 77.3 kg
[2019-01-31 13:34] LABS: BASOPHILS 0.1 % (0-2); HEMATOCRIT 47.6 % (42.0-54.0); IMMATURE GRANULOCYTES 0.3 % (0-5); LYMPHOCYTES 15.5 % (15-50); MCH 32.9 pg (26.0-34.0); MCHC 33.6 g/dL (31.0-37.0); MCV 97.9 fL (80.0-100.0); MEAN PLATELET VOLUME 9.7 fL (7.4-10.4); MONOCYTES 7.4 % (2-11); NEUTROPHILS 74.7 % (40-80); RBC 4.86 10x6/uL (4.20-6.10); RDW 14.7 % (11.5-14.5); WBC 12.8 10x3/uL (4.8-10.8)
[2019-01-31 13:38] LABS: APPEARANCE CLEAR (CLEAR); COLOR YELLOW (YELLOW); SPECIFIC GRAVITY 1.015 (1.005-1.020)
[2019-01-31 13:39] LABS: BILIRUBIN NEGATIVE (NEGATIVE); GLUCOSE NEGATIVE (NEGATIVE); KETONE NEGATIVE (NEGATIVE); NITRITE NEGATIVE (NEGATIVE); PROTEIN NEGATIVE (NEGATIVE); UROBILINOGEN NORMAL (NORMAL)
[2019-01-31 13:42] LABS: CALC OSMOLALITY 272 mosm/kg (275-300); CALCIUM 9.5 mg/dL (8.5-10.1); CARBON DIOXIDE 23.5 mmol/L (21.0-32.0); CHLORIDE - SERUM 104 mmol/L (98-107); CREATININE - SERUM 0.9 mg/dL (0.6-1.3); GLUCOSE 82 mg/dL (74-106); POTASSIUM - SERUM 4.6 mmol/L (3.5-5.1); SODIUM 138 mmol/L (136-145); UREA NITROGEN 6 mg/dL (7-18); eGFR NON AFRICAN AMERICAN > 90 mL/min (90-120)
[2019-01-31 13:51] LABS: ALBUMIN 3.8 g/dL (3.4-5.0); ALKALINE PHOSPHATASE 106 U/L (46-116); ALT (SGPT) 44 U/L (10-68); AMYLASE - SERUM 49 U/L (25-115); BILIRUBIN - TOTAL 0.23 mg/dL (0.2-1.3); LIPASE 107 U/L (73-393); PROTEIN - SERUM 8.4 g/dL (6.4-8.2); TROPONIN-I < 0.017 ng/mL (0.000-0.060)
[2019-01-31 14:17] LABS: PLATELET COUNT 228 10x3/uL (130-400)
[2019-01-31] MEDS ORDERED: HYDROCODON-ACE1 EAC2 PO (15:29)
[2019-01-31] MEDS ORDERED: CIPRO500 MG PO (15:29)
[2019-01-31] MEDS ORDERED: FLAGYL500 MG PO (15:29)
[2019-01-31 17:56] VITALS: BP 122/88
== END 2019-01-31 17:57 | disposition home or self-care (01) ==
LOC: D.ER 12:57
PROVIDERS: Family Medicine
DX: K52.9 Noninfective gastroenteritis and colitis, unspecified (principal); F10.11 Alcohol abuse, in remission

== ENCOUNTER 2019-03-11 21:25 | Emergency (ER) | payer MEDICARE ==
[~2019-03-11] VITALS: Ht 175.3 cm; Wt 75.0 kg
[~2019-03-11 21:25] MED LIST changes: +CIPRO500 MG PO; +FLAGYL500 MG PO; +HYDROCODON-ACE1 EAC2 PO
[2019-03-11 21:27] VITALS: Ht 175.3 cm; Wt 75.0 kg
[2019-03-11 22:17] LABS: BASOPHILS 0.4 % (0-2); EOSINOPHILS 5.8 % (0-7); HEMATOCRIT 46.1 % (42.0-54.0); HEMOGLOBIN 16.1 g/dL (13.5-17.5); IMMATURE GRANULOCYTES 0.1 % (0-5); LYMPHOCYTES 38.4 % (15-50); MCH 33.2 pg (26.0-34.0); MCHC 34.9 g/dL (31.0-37.0); MCV 95.1 fL (80.0-100.0); MEAN PLATELET VOLUME 9.3 fL (7.4-10.4); MONOCYTES 9.3 % (2-11); RBC 4.85 10x6/uL (4.20-6.10); RDW 13.5 % (11.5-14.5); WBC 8.3 10x3/uL (4.8-10.8)
[2019-03-11 22:29] LABS: APPEARANCE CLEAR (CLEAR); BILIRUBIN NEGATIVE (NEGATIVE); COLOR YELLOW (YELLOW); GLUCOSE NEGATIVE (NEGATIVE); KETONE NEGATIVE (NEGATIVE); NITRITE NEGATIVE (NEGATIVE); PROTEIN NEGATIVE (NEGATIVE); SPECIFIC GRAVITY 1.025 (1.005-1.020); UROBILINOGEN NORMAL (NORMAL)
[2019-03-11 22:45] LABS: UDS - AMPHET POSITIVE QUAL (NEGATIVE); UDS - BARB NEGATIVE QUAL (NEGATIVE); UDS - BENZO NEGATIVE QUAL (NEGATIVE); UDS - COCAINE NEGATIVE QUAL (NEGATIVE); UDS - OPIATE NEGATIVE QUAL (NEGATIVE); UDS - PCP NEGATIVE QUAL (NEGATIVE); UDS - THC NEGATIVE QUAL (NEGATIVE)
[2019-03-11 22:57] LABS: PLATELET COUNT 313 10x3/uL (130-400)
[2019-03-11 23:20] LABS: CALC OSMOLALITY 286 mosm/kg (275-300); CALCIUM 9.1 mg/dL (8.5-10.1); CARBON DIOXIDE 27.6 mmol/L (21.0-32.0); CHLORIDE - SERUM 103 mmol/L (98-107); CREATININE - SERUM 1.3 mg/dL (0.6-1.3); GLUCOSE 97 mg/dL (74-106); POTASSIUM - SERUM 3.6 mmol/L (3.5-5.1); SODIUM 145 mmol/L (136-145); UREA NITROGEN 7 mg/dL (7-18); eGFR NON AFRICAN AMERICAN 64 mL/min (90-120)
[2019-03-11] MEDS ORDERED: PROTONIX40 MG PO (23:28)
[2019-03-11 23:29] LABS: ALBUMIN 3.9 g/dL (3.4-5.0); ALKALINE PHOSPHATASE 114 U/L (46-116); ALT (SGPT) 33 U/L (10-68); AMYLASE - SERUM 54 U/L (25-115); BILIRUBIN - TOTAL 0.22 mg/dL (0.2-1.3); LIPASE 173 U/L (73-393); PROTEIN - SERUM 8.6 g/dL (6.4-8.2); TROPONIN-I < 0.017 ng/mL (0.000-0.060)
[2019-03-12 00:38] VITALS: BP 117/78
== END 2019-03-12 00:38 | disposition home or self-care (01) ==
LOC: D.ER 21:25
PROVIDERS: Emergency Medicine
DX: R10.9 Unspecified abdominal pain (principal); F10.10 Alcohol abuse, uncomplicated; F19.10 Other psychoactive substance abuse, uncomplicated